=== PATIENT | female | born 1975 | race Hispanic/Latino ===

== ENCOUNTER 2020-06-23 12:17 | Emergency (ER) | payer OTHER ==
[2020-06-23] MEDS ORDERED: IBUPROFEN 400 MG TAB ONE (13:32)
[2020-06-23] MEDS ORDERED: IBUPROFEN 200 MG TAB PO ONE (13:32)
[2020-06-23] MEDS ORDERED: LIDOCAINE 4% PATCH ONE (13:32)
--- NOTE | 2020-06-23 14:21 | RAD REPORT ---
EXAM DESCRIPTION: Shoulder Right 2 View - 06/23/2020 1:52 pm CLINICAL HISTORY: PAIN COMPARISON: No comparisons TECHNIQUE: Internal and external rotation views of the right shoulder were obtained. FINDINGS: There is no fracture or dislocation. AC joint is normal in appearance. No acute or suspic ious findings. IMPRESSION: Negative two-view right shoulder examination.
--- NOTE | 2020-06-23 14:26 | ER ---
Nurse's Notes [facility] Name: Torri Victoria Age: 44 yrs Sex: Female : 1975 Arrival Date: 06/23/2020 Time: 12:19 Bed 25 Private MD: Diagnosis: Strain of muscle(s) and tendon(s) of the rotator cuff of right shoulder Presentation: 06/23 12:54 Chief complaint: Patient states: my RIGHT arm started hurting 2 weeks ago, and i also tw2 felt dizzy then when it hurt, i felt dizzy because of the pain. Coronavirus screen: At this time, the client does not indicate any symptoms associated with coronavirus-19. Ebola Screen: Patient denies travel to an Ebola-affected area in the 21 days before illness onset. Initial Sepsis Screen: Does the patient meet any 2 criteria? HR > 90 bpm. No. Patient's initial sepsis screen is negative. Does the patient have a suspected source of infection? No. Patient's initial sepsis screen is negative. Risk Assessment: Do you want to hurt yourself or someone else? Patient reports no desire to harm self or others. Onset of symptoms was June 23, 2020. 12:54 Method Of Arrival: Ambulatory tw2 12:54 Acuity: RUDY 4 tw2 Triage Assessment: 12:57 General: Appears in no apparent distress. Behavior is calm, cooperative, appropriate tw2 for age. Pain: Complains of pain in right arm. Neuro: Reports dizziness, with the RIGHT arm pain. 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 - Social history:: Smoking status: Patient denies any tobacco usage or history of. Screenin:12 Abuse screen: Denies threats or abuse. Denies injuries from another. Nutritional zb screening: No deficits noted. Tuberculosis screening: No symptoms or risk factors identified. Fall Risk None identified. Assessment: 13:09 General: Appears in no apparent distress. uncomfortable, Behavior is calm, cooperative, zb appropriate for age. Pain: Complains of pain in right shoulder Pain does not radiate. Pain currently is 10 out of 10 on a pain scale. Quality of pain is described as sharp, tender, Pain began 2 weeks ago Is continuous, Aggravated by increased activity, repositioning. Neuro: Level of Consciousness is awake, alert, obeys commands, Oriented to person, place, time, situation. Cardiovascular: Capillary refill < 3 seconds in bilateral fingers Patient's skin is warm and dry. Respiratory: Airway is patent Respiratory effort is even, unlabored, Respiratory pattern is regular, symmetrical. GI: No signs and/or symptoms were reported involving the gastrointestinal system. : No signs and/or symptoms were reported regarding the genitourinary system. EENT: No signs and/or symptoms were reported regarding the EENT system. Derm: Skin is intact, is healthy with good turgor, Skin is dry, Skin is normal, Skin temperature is warm. Musculoskeletal: Circulation, motion, and sensation intact. Capillary refill < 3 seconds, in bilateral fingers. Range of motion: limited in right arm. 14:09 Reassessment: Patient appears in no apparent distress at this time. Patient and/or zb family updated on plan of care and expected duration. Pain level reassessed. Patient is alert, oriented x 3, equal unlabored respirations, skin warm/dry/pink. pt states that her pain has decreased. pt continues to wear the sling. Patient states feeling better. Patient states symptoms have improved. Vital Signs: 12:54 BP 142 / 88; Pulse 99; Resp 17; Temp 98.2(TE); Pulse Ox 98% on R/A; Weight 61.23 kg tw2 (R); Pain 10/10; 14:09 BP 113 / 94; Pulse 98; Resp 16; Pulse Ox 96% on R/A; zb ED Course: 12:19 Patient arrived in ED. ag3 12:56 Triage completed. tw2 12:57 Arm band placed on. tw2 13:01 Manjit Thorne NP is PHCP. pm1 13:02 Bimal Gould MD is Attending Physician. pm1 13:02 Andie Jennings RN is Primary Nurse. zb 13:12 Patient has correct armband on for positive identification. Allergy band placed. Bed in zb low position. Call light in reach. Side rails up X 1. Adult w/ patient. Pulse ox on. NIBP on. Door closed. Noise minimized. 13:53 Shoulder Right (2 View) XRAY In Process Unspecified. EDMS 14:25 Logan De Jesus MD is Referral Physician. pm1 14:32 No provider procedures requiring assistance completed. Patient did not have IV access zb during this emergency room visit. Administered Medications: 13:29 Drug: Ibuprofen 600 mg Route: PO; zb 14:19 Follow up: Response: No adverse reaction; Pain is decreased zb 13:37 Drug: Lidoderm 5 % (700 mg/patch) 1 patches Route: Topical; Site: affected area; zb 14:19 Follow up: Response: No adverse reaction; Pain is decreased zb Outcome: 14:26 Discharge ordered by . pm1 14:32 Discharged to home ambulatory, with family. zb 14:32 Condition: stable 14:32 Discharge instructions given to patient, family, Instructed on discharge instructions, follow up and referral plans. medication usage, Demonstrated understanding of instructions, follow-up care, medications, Prescriptions given X 1. 14:33 Patient left the ED. zb Signatures: Dispatcher [employer] EDMS Manjit Thorne, HEALTH PHYSICIST HEALTH PHYSICIST pm1 Ericka Chan RN RN tw2 Mya Jarvis ag3 Andie Jennings RN RN zb
--- NOTE | 2020-06-23 14:26 | EDPHYS ---
Physician Documentation [facility] Name: Torri Victoria Age: 44 yrs Sex: Female : 1975 Arrival Date: 06/23/2020 Time: 12:19 Bed 25 Private MD: ROBIN Physician Bimal Gould HPI: 06/23 14:02 This 44 yrs old Female presents to ER via Ambulatory with complaints of Right pm1 shoulder pain. 14:02 The patient or guardian complains of pain. The complaints affect the anterior aspect of pm1 right shoulder. Context: The problem was sustained at home, resulted from possibly lifting up heavy item. Onset: The symptoms/episode began/occurred 2 week(s) ago. Treatment prior to arrival includes: over the counter medications, Tylenol. Modifying factors: The symptoms are alleviated by remaining still, the symptoms are aggravated by movement. Associated signs and symptoms: Pertinent positives: pain, Pertinent negatives: fever, numbness, tingling. Severity of symptoms: in the emergency department the symptoms are unchanged. The patient has not experienced similar symptoms in the past. The patient has not recently seen a physician. 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 - Social history:: Smoking status: Patient denies any tobacco usage or history of. Vital Signs: 12:54 BP 142 / 88; Pulse 99; Resp 17; Temp 98.2(TE); Pulse Ox 98% on R/A; Weight 61.23 kg tw2 (R); Pain 10/10; 14:09 BP 113 / 94; Pulse 98; Resp 16; Pulse Ox 96% on R/A; zb MDM: 13:02 Patient medically screened. pm1 13:58 Data reviewed: vital signs. pm1 14:25 Counseling: I had a detailed discussion with the patient and/or guardian regarding: the pm1 historical points, exam findings, and any diagnostic results supporting the discharge/admit diagnosis, radiology results, the need for outpatient follow up, a orthopedic surgeon, to return to the emergency department if symptoms worsen or persist or if there are any questions or concerns that arise at home. 06/23 13:09 Order name: Shoulder Right (2 View) XRAY; Complete Time: 14:24 pm1 06/23 13:09 Order name: Sling; Complete Time: 13:29 pm1 Administered Medications: 13:29 Drug: Ibuprofen 600 mg Route: PO; zb 14:19 Follow up: Response: No adverse reaction; Pain is decreased zb 13:37 Drug: Lidoderm 5 % (700 mg/patch) 1 patches Route: Topical; Site: affected area; zb 14:19 Follow up: Response: No adverse reaction; Pain is decreased zb Disposition: 06/23/20 14:26 Discharged to Home. Impression: Strain of muscle(s) and tendon(s) of the rotator cuff of right shoulder. - Condition is Stable. - Discharge Instructions: Shoulder Pain, How to Use a Sling. - Prescriptions for Diclofenac Sodium 75 mg Oral Tablet, Delayed Release (E.C.) - take 1 tablet by ORAL route 2 times per day As needed; 30 tablet. - Medication Reconciliation Form, Thank You Letter, Antibiotic Education, Prescription Opioid Use form. - Follow up: Emergency Department; When: As needed; Reason: Worsening of condition. Follow up: Logan De Jesus MD; When: 2 - 3 days; Reason: Recheck today's complaints, Continuance of care, Re-evaluation by your physician. - Problem is new. - Symptoms have improved. Signatures: Dispatcher [employer] EDMS Manjit Thorne NP AUTOMOBILE SERVICE WRITER pm1 Ericka Chan RN RN tw2 Andie Jennings RN RN zb Corrections: (The following items were deleted from the chart) 14:33 14:26 06/23/2020 14:26 Discharged to Home. Impression: Strain of muscle(s) and zb tendon(s) of the rotator cuff of right shoulder. Condition is Stable. Forms are Medication Reconciliation Form, Thank You Letter, Antibiotic Education, Prescription Opioid Use. Follow up: Emergency Department; When: As needed; Reason: Worsening of condition. Follow up: Dr. Logan De Jesus; When: 2 - 3 days; Reason: Recheck today's complaints, Continuance of care, Re-evaluation by your physician. Problem is new. Symptoms have improved. pm1
[2020-06-23 15:02] VITALS: TEMP 98.2
[2020-06-23 15:03] VITALS: BP 113/94; O2SAT 96
== END 2020-06-23 14:33 | disposition home or self-care (01) ==
LOC: ER 12:17
DX: S46.011A Strain of muscle(s) and tendon(s) of the rotator cuff of right shoulder, initial encounter (principal)
CPT/HCPCS: 99284

== ENCOUNTER 2020-08-09 10:46 | Emergency (ER) | payer OTHER ==
[2020-08-09 12:48] LABS: SARS-COV-2 RT PCR POSITIVE (NEGATIVE)
--- NOTE | 2020-08-09 13:05 | EDPHYS ---
Physician Documentation [facility] Name: Torri Victoria Age: 44 yrs Sex: Female : 1975 Arrival Date: 08/09/2020 Time: 10:48 Bed DIS1 Private MD: ED Physician Luis Loo HPI: 08/09 12:35 This 44 yrs old Female presents to ER via Ambulatory with complaints of r/o pm1 covid. 22:01 The patient or guardian reports cough, headache, sneezing. Onset: The symptoms/episode pm1 began/occurred yesterday. Severity of symptoms: in the emergency department the symptoms are unchanged. Associated signs and symptoms: Pertinent negatives: chest pain, diarrhea, fever, nausea, sore throat, vomiting, shortness of breath. The patient has not recently seen a physician. daughter was covid positive. 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 - Social history:: Smoking status: Patient denies any tobacco usage or history of. ROS: 22:01 Constitutional: Negative for fever, chills, and weight loss, ENT: Negative for injury, pm1 pain, and discharge, Cardiovascular: Negative for chest pain, palpitations, and edema. 22:01 Abdomen/GI: Negative for abdominal pain, nausea, vomiting, diarrhea, and constipation, Back: Negative for injury and pain, MS/Extremity: Negative for injury and deformity, Skin: Negative for injury, rash, and discoloration. 22:01 Respiratory: Positive for cough, Negative for shortness of breath. 22:01 Neuro: Positive for headache. Exam: 22:01 Constitutional: This is a well developed, well nourished patient who is awake, alert, pm1 and in no acute distress. Head/Face: Normocephalic, atraumatic. 22:01 Skin: Warm, dry with normal turgor. Normal color with no rashes, no lesions, and no evidence of cellulitis. MS/ Extremity: Pulses equal, no cyanosis. Neurovascular intact. Full, normal range of motion. 22:01 Cardiovascular: Exam negative for acute changes, Rate: normal, Rhythm: regular, Pulses: no pulse deficits are appreciated. 22:01 Respiratory: Exam negative for acute changes, respiratory distress, shortness of breath. 22:01 Neuro: Exam negative for acute changes, Orientation: is normal, Mentation: is normal, Motor: moves all fours, Gait: is steady. Vital Signs: 11:13 BP 131 / 77; Pulse 105; Resp 16 S; Temp 98.6(TE); Pulse Ox 98% on R/A; Weight 72.57 kg ca1 (R); Height 5 ft. 2 in. (157.48 cm) (R); 11:13 Body Mass Index 29.26 (72.57 kg, 157.48 cm) ca1 MDM: 12:03 Patient medically screened. pm1 13:04 Data reviewed: vital signs. Data interpreted: Pulse oximetry: on room air is 98 %. pm1 Interpretation: normal. Counseling: I had a detailed discussion with the patient and/or guardian regarding: the historical points, exam findings, and any diagnostic results supporting the discharge/admit diagnosis, lab results, the need for outpatient follow up, to return to the emergency department if symptoms worsen or persist or if there are any questions or concerns that arise at home. 08/09 12:03 Order name: Strep; Complete Time: 12:52 pm1 08/09 12:35 Order name: Throat Culture EDNV 08/09 12:49 Order name: COVID-19/FLU A+B; Complete Time: 12:52 EDMS Administered Medications: No medications were administered Disposition: 18:26 Co-signature as Attending Physician, Luis Loo MD. rn Disposition: 08/09/20 13:04 Discharged to Home. Impression: Coronavirus infection, unspecified. - Condition is Stable. - Discharge Instructions: COVID-19. - Medication Reconciliation Form, Thank You Letter, Antibiotic Education, Prescription Opioid Use form. - Follow up: Emergency Department; When: As needed; Reason: Worsening of condition. Follow up: Private Physician; When: 2 - 3 days; Reason: Recheck today's complaints, Continuance of care, Re-evaluation by your physician. - Problem is new. - Symptoms have improved. Signatures: Dispatcher [employer] EDNV Tatyana Chávez RN RN iw Nieto, Roman, MD MD rn Marinas, Patrick, ENGINE BOSS ENGINE BOSS pm1 Jacklyn Barrera RN RN ca1 Corrections: (The following items were deleted from the chart) 11:48 11:23 CORONAVIRUS+ ordered. EDNV EDMS 13:17 13:04 08/09/2020 13:04 Discharged to Home. Impression: Coronavirus infection, iw unspecified. Condition is Stable. Forms are Medication Reconciliation Form, Thank You Letter, Antibiotic Education, Prescription Opioid Use. Follow up: Emergency Department; When: As needed; Reason: Worsening of condition. Follow up: Private Physician; When: 2 - 3 days; Reason: Recheck today's complaints, Continuance of care, Re-evaluation by your physician. Problem is new. Symptoms have improved. pm1
--- NOTE | 2020-08-09 13:05 | ER ---
Nurse's Notes [facility] Name: Torri Victoria Age: 44 yrs Sex: Female : 1975 Arrival Date: 08/09/2020 Time: 10:48 Bed DIS1 Private MD: Diagnosis: Coronavirus infection, unspecified Presentation: 08/09 11:13 Chief complaint: Patient states: S/S started 08/08/2020. Headache, cough, sneezing. ca1 Coronavirus screen: Client denies travel out of the [place] in the last 14 days. cough unrelated to allergies, headache, runny nose, Client presents with at least one sign or symptom that may indicate coronavirus-19. Standard/surgical mask placed on the client. Provider contacted for isolation considerations. exposed to sister with Covid+. Ebola Screen: Patient negative for fever greater than or equal to 101.5 degrees Fahrenheit, and additional compatible Ebola Virus Disease symptoms Patient denies exposure to infectious person. Patient denies travel to an Ebola-affected area in the 21 days before illness onset. No symptoms or risks identified at this time. Initial Sepsis Screen: Does the patient meet any 2 criteria? No. Patient's initial sepsis screen is negative. Does the patient have a suspected source of infection? No. Patient's initial sepsis screen is negative. Risk Assessment: Do you want to hurt yourself or someone else? Patient reports no desire to harm self or others. Onset of symptoms was August 09, 2020. 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 - Social history:: Smoking status: Patient denies any tobacco usage or history of. Vital Signs: 11:13 BP 131 / 77; Pulse 105; Resp 16 S; Temp 98.6(TE); Pulse Ox 98% on R/A; Weight 72.57 kg ca1 (R); Height 5 ft. 2 in. (157.48 cm) (R); 11:13 Body Mass Index 29.26 (72.57 kg, 157.48 cm) ca1 ED Course: 10:48 Patient arrived in ED. as 11:15 Triage completed. ca1 11:16 Arm band placed on right wrist. ca1 11:31 Flu Sent. ca1 12:00 Manjit Thorne NP is PHCP. pm1 12:00 Luis Loo MD is Attending Physician. pm1 12:14 Tatyana Chávez, RN is Primary Nurse. iw Administered Medications: No medications were administered Outcome: 13:04 Discharge ordered by . pm1 13:17 Patient left the ED. iw Signatures: Marylin Cr as Tatyana Cháevz, RN RN iw Manjit Thorne NP PLATE FORMER pm1 Jacklyn Barrera RN RN ca1 Corrections: (The following items were deleted from the chart) 11:48 11:31 CORONAVIRUS+ drawn and sent. ca1 EDMS
[2020-08-09 13:26] VITALS: BP 131/77; TEMP 98.6; O2SAT 98
== END 2020-08-09 13:17 | disposition home or self-care (01) ==
LOC: ER 10:46
DX: U07.1 COVID-19 (principal)
CPT/HCPCS: 87070; 87081; 0240U; 99282

== ENCOUNTER → 2023-09-01 | Emergency (ER) | payer OTHER ==
[~2023-09-01] MED LIST: NA CHLORIDE 0.9% 1,000 ML ONE; NITROFURAN MACRO 100 MG CAP PO ONE
[2023-09-01 15:35] LABS: Absolute Eosinophils 0.4 K/uL (0-0.5); Absolute Monocytes 0.5 K/uL (0.1-1.3); Absolute Neutrophil 5.2 K/uL (1.8-8.0); Basophils % 0.5 % (0-1.3); Eosinophils % 4.1 % (0-4.4); Hemoglobin 13.5 g/dL (12.0-15.0); MCH 28.3 pg (27.0-35.0); MCV 85.7 fL (80-100); MPV 7.6 fL (7.6-11.3); Neutrophils % 56.4 % (41.7-73.7); Nucleated Red Blood Cells % 0.1 % (0-0); Platelets 251 thou/uL (152-406); RBC Red Blood Cell Count 4.78 M/uL (3.86-4.86); Red Cell Distribution Width 13.3 % (12.1-15.2)
[2023-09-01 15:58] LABS: Albumin 3.8 g/dL (3.4-5.0); Albumin/Globulin Ratio 0.9 (1.1-1.8); Anion Gap 8.8 mEq/L (5.0-15.0); Bilirubin Total 0.2 mg/dL (0.2-1.0); Globulin 4.2 g/dL (2.3-3.5); Potassium 3.8 mEq/L (3.5-5.1); Specific Gravity 1.023 (1.005-1.030); Sqamous Epithelial <5 /HPF (None Seen); Urine Bacteria 20-50 /HPF (<20); Urine Bilirubin NEGATIVE (Negative); Urine Blood Negative (Negative); Urine Clarity Turbid (Clear); Urine Color Light-Yellow (Yellow); Urine Culture Reflex Order REFLEXED; Urine Glucose NEGATIVE (Negative); Urine Ketones NEGATIVE (Negative); Urine Microscopic Reflex YN ORDER UMIC; Urine Mucus Slight /HPF (None Seen); Urine Nitrite 2+ (Negative); Urine Protein NEGATIVE (Negative); Urine RBC <5 /HPF (None Seen); Urine Urobilinogen Normal (Normal); Urine pH 5.5 (5.0-7.0)
[2023-09-01 15:59] LABS: Specific Gravity 1.023 (1.005-1.030)
--- NOTE | 2023-09-01 16:51 | RAD REPORT ---
EXAM DESCRIPTION: CT - Abdomen Pelvis W Contrast - 09/01/2023 4:22 pm CLINICAL HISTORY: ABD PAIN COMPARISON: No comparisons TECHNIQUE: Thin cut axial CT imaging of the abdomen and pelvis was performed following intravenous a dministration of 95 mL Isovue 300. Multiplanar reformats were generated and reviewed. All CT scans are performed using dose optimization technique as appropriate and may include automated exposure control or mA/KV adjustment according to patient size. FINDINGS: No suspicious findings in the lung bases. The liver, spleen, adrenal glands, and pancreas show no suspicious findings. Gallbladder and biliary tree are also without suspicious finding. Symmetric renal function is seen with no hydronephrosis or suspicious renal mass. 1.3 cm left mid to lower pole fluid density cyst. No dilated bowel loops or bowel wall thickening. No free air, free fluid or inflammatory stranding. N o hernia, mass or bulky lymphadenopathy. Small adnexal cysts, largest measuring 2.2 cm on the left li jovan physiologic. The urinary bladder is without significant finding. No suspicious bony findings. Small sclerotic lesion within the left iliac wing, likely benign, may re present a small enchondroma or bone island. IMPRESSION: No acute intra-abdominal process.
--- NOTE | 2023-09-01 17:21 | ER ---
Nurse's Notes [facility] Name: Torri Victoria Age: 47 yrs Sex: Female : 1975 Arrival Date: 09/01/2023 Time: 15:04 Bed 4 Private MD: Diagnosis: UTI/ Urinary tract infection, site not specified Presentation: 08/31 15:15 Chief complaint: Lower abdominal pain and diarrhea since last night. Coronavirus hb screen: At this time, the client does not indicate any symptoms associated with coronavirus-19. Ebola Screen: No symptoms or risks identified at this time. Initial Sepsis Screen: Does the patient meet any 2 criteria? No. Patient's initial sepsis screen is negative. Does the patient have a suspected source of infection? No. Patient's initial sepsis screen is negative. Risk Assessment: Do you want to hurt yourself or someone else? Patient reports no desire to harm self or others. Onset of symptoms was August 31, 2023. 15:15 Method Of Arrival: Ambulatory hb 15:15 Acuity: RUDY 3 hb Triage Assessment: 15:16 General: Appears in no apparent distress. Behavior is calm, cooperative. Pain: Pain hb currently is 5 out of 10 on a pain scale. Neuro: Level of Consciousness is awake, alert, obeys commands, Oriented to person, place, time, situation. Cardiovascular: Patient's skin is warm and dry. Respiratory: Respiratory effort is even, unlabored, Respiratory pattern is regular, symmetrical. GI: Reports lower abdominal pain, diarrhea. Historical: - Allergies: 15:16 No Known Allergies; hb - Home Meds: 15:16 None [Active]; hb - Immunization history:: Adult Immunizations up to date. - Social history:: Smoking status: Patient denies any tobacco usage or history of. Screenin:[address] [facility] ED Fall Risk Assessment (Adult) History of falling in the last 3 months, hb including since admission No falls in past 3 months (0 pts) Confusion or Disorientation No (0 pts) Intoxicated or Sedated No (0 pts) Impaired Gait No (0 pts) Mobility Assist Device Used No (0 pt) Altered Elimination No (0 pt) Score/Fall Risk Level 0 - 2 = Low Risk Oriented to surroundings, Maintained a safe environment, Educated pt \T\ family on fall prevention, incl call for assistance when getting out of bed. Abuse screen: Denies threats or abuse. Denies injuries from another. Nutritional screening: No deficits noted. Tuberculosis screening: No symptoms or risk factors identified. Assessment: 15:29 General: Appears in no apparent distress. Behavior is calm, cooperative. Pain: kd3 Complains of pain in abdomen. Neuro: Level of Consciousness is awake, alert, obeys commands, Oriented to person, place, time, situation. Cardiovascular: Patient's skin is warm and dry. Respiratory: Airway is patent Trachea midline Respiratory effort is even, unlabored, Respiratory pattern is regular, symmetrical. GI: Bowel sounds present X 4 quads. Abd is soft X 4 quads. 17:00 Reassessment: Patient appears in no apparent distress at this time. Patient and/or nj1 family updated on plan of care and expected duration. Pain level reassessed. Patient is alert, oriented x 3, equal unlabored respirations, skin warm/dry/pink. Patient denies pain at this time. Vital Signs: 15:15 BP 151 / 85; Pulse 119; Resp 16; Temp 98.6(O); Pulse Ox 100% on R/A; Pain 5/10; hb 16:00 BP 129 / 77; Pulse 91; Resp 16; Pulse Ox 100% ; nj1 17:21 BP 114 / 64; Pulse 106; Resp 17; Pulse Ox 100% on R/A; kd3 15:15 Pain Scale: Adult hb ED Course: 15:09 Patient arrived in ED. im 15:10 Angélica Atkinson FNP-C [facility]. kb 15:10 Dave Dalton MD is Attending Physician. kb 15:14 Susan Leon, BARBARA is Primary Nurse. aa5 15:16 Triage completed. hb 15:16 Arm band placed on. hb 15:17 Client placed on continuous cardiac and pulse oximetry monitoring. NIBP monitoring hb applied. Pulse ox on. NIBP on. 15:18 Patient has correct armband on for positive identification. Bed in low position. Call hb light in reach. Side rails up X 1. 15:29 Inserted saline lock: 20 gauge in right antecubital area, using aseptic technique. kd3 Blood collected. 15:30 No provider procedures requiring assistance completed. Initial lab(s) drawn, by nj, kd3 sent to lab. Urine collected: clean catch specimen, clear. 16:22 CT Abd/Pelvis - IV Contrast Only In Process Unspecified. EDMS 17:55 Provided Education on: discharge instructions. nj1 17:55 IV discontinued, intact, bleeding controlled. nj1 Administered Medications: 15:25 Drug: NS 0.9% IV 1000 ml IV at 1 bolus Per protocol; 1000 mL bolus Route: IV; Rate: 1 kd3 bolus; Site: right antecubital; 17:00 Follow up: Response: No adverse reaction; IV Status: Completed infusion; IV Intake: nj1 1000ml 17:30 Drug: Macrobid PO 100 mg PO once; administer with food Route: PO; nj1 17:55 Follow up: Response: No adverse reaction nj1 Medication: 17:21 VIS not applicable for this client. kd3 Intake: 17:00 IV: 1000ml; Total: 1000ml. nj1 Outcome: 17:21 Discharge ordered by . kb 17:54 Patient left the ED. nj1 17:54 Discharged to home ambulatory, with family, nj1 17:54 Condition: stable 17:54 Discharge instructions given to patient, family, Instructed on discharge instructions, follow up and referral plans. medication usage, Demonstrated understanding of instructions, follow-up care, medications, Prescriptions given X 1, Signatures: Dispatcher [employer] EDVA Angélica Atkinson, CONTRACTOR BROOMCORN THRESHING-C CONTRACTOR BROOMCORN THRESHING-CkSusan Torrez, RN RN aa5 Latisha Khan, RN RN Mirlande Richard RN RN kd3 Kasie Sosa RN RN nj1 Carine Triplett
--- NOTE | 2023-09-01 17:22 | EDPHYS ---
Physician Documentation [facility] Name: Torri Victoria Age: 47 yrs Sex: Female : 1975 Arrival Date: 09/01/2023 Time: 15:04 Bed 4 Private MD: ED Physician Dave Dalton HPI: 08/31 15:31 This 47 yrs old Female presents to ER via Ambulatory with complaints of kb Abdominal Pain, Diarrhea. 15:31 Patient is a 47-year-old female who presents for lower abdominal pain and diarrhea that kb started last night. Denies nausea, vomiting, fever.. Historical: - Allergies: 15:16 No Known Allergies; hb - Home Meds: 15:16 None [Active]; hb - Immunization history:: Adult Immunizations up to date. - Social history:: Smoking status: Patient denies any tobacco usage or history of. ROS: 15:31 Constitutional: As per HPI kb 15:31 Abdomen/GI: Positive for abdominal pain, diarrhea, Negative for nausea and vomiting, 15:31 All other systems are negative, Exam: 15:31 Constitutional: This is a well developed, well nourished patient who is awake, alert, kb and in no acute distress. Head/Face: Normocephalic, atraumatic. ENT: Moist Mucous membranes Cardiovascular: Regular rate Respiratory: Respirations even and unlabored. No increased work of breathing. Talking in full sentences Abdomen/GI: Soft, non-tender. No distention Skin: Warm, dry with normal turgor. Normal color. MS/ Extremity: Pulses equal, no cyanosis. Neurovascular intact. Full, normal range of motion. Neuro: Awake and alert, GCS 15, oriented to person, place, time, and situation. Moves all extremities. Normal gait. Vital Signs: 15:15 BP 151 / 85; Pulse 119; Resp 16; Temp 98.6(O); Pulse Ox 100% on R/A; Pain 5/10; hb 16:00 BP 129 / 77; Pulse 91; Resp 16; Pulse Ox 100% ; nj1 17:21 BP 114 / 64; Pulse 106; Resp 17; Pulse Ox 100% on R/A; kd3 15:15 Pain Scale: Adult hb MDM: 15:10 Patient medically screened. kb 15:31 Data reviewed: vital signs, nurses notes. kb 17:20 Differential diagnosis: appendicitis, non-specific abd pain, urinary tract infection. kb Historians other than the Patient: Parent: mother. Counseling: I had a detailed discussion with the patient and/or guardian regarding the historical points, exam findings, and any diagnostic results supporting the discharge/admit diagnosis, lab results, radiology results, the need for outpatient follow up, a family practitioner, to return to the emergency department if symptoms worsen or persist or if there are any questions or concerns that arise at home. 08/31 15:15 Order name: CBC with Diff; Complete Time: 15:41 kb 08/31 15:15 Order name: CMP; Complete Time: 16:00 kb 08/31 15:15 Order name: Lipase; Complete Time: 16:00 kb 08/31 15:15 Order name: Test, Urine; Complete Time: 16:00 kb 08/31 15:15 Order name: Urinalysis w/ reflexes; Complete Time: 16:00 kb 08/31 16:01 Order name: Urine Culture EDMS 08/31 15:15 Order name: CT Abd/Pelvis - IV Contrast Only; Complete Time: 17:01 kb 08/31 15:15 Order name: IV Saline Lock; Complete Time: 15:25 kb 08/31 15:15 Order name: Labs collected and sent; Complete Time: 15:25 kb Administered Medications: 15:25 Drug: NS 0.9% IV 1000 ml IV at 1 bolus Per protocol; 1000 mL bolus Route: IV; Rate: 1 kd3 bolus; Site: right antecubital; 17:00 Follow up: Response: No adverse reaction; IV Status: Completed infusion; IV Intake: nj1 1000ml 17:30 Drug: Macrobid PO 100 mg PO once; administer with food Route: PO; nj1 17:55 Follow up: Response: No adverse reaction nj1 Disposition Summary: 09/01/23 17:21 Discharge Ordered Notes: Location: Home kb Condition: Stable kb Diagnosis - UTI/ Urinary tract infection, site not specified kb Followup: kb - With: Emergency Department - When: As needed - Reason: Worsening of condition Followup: kb - With: Private Physician - When: 2 - 3 days - Reason: Recheck today's complaints, Continuance of care, Re-evaluation by your physician Discharge Instructions: - Discharge Summary Sheet kb - Urinary Tract Infection, Adult, [id number] kb Forms: - Medication Reconciliation Form kb - Thank You Letter kb - Antibiotic Education kb - Prescription Opioid Use kb - Patient Portal Instructions kb - Leadership Thank You Letter kb Prescriptions: - Macrobid 100 mg Oral Capsule - take 1 capsule ORAL route every 12 hours for 10 days; 20 capsule; Refills: 0, kb Product Selection Permitted Addendum: 09/04/2023 09:41 I was immediately available for consultation during this patient's visit. I did not e c2 personally see the patient or discuss the patient with the CHRISSIE. . Signatures: Dispatcher [employer] EDAngélica Bush, ROUGHING MILL OPERATOR-C ROUGHING MILL OPERATOR-Ckb Latisha Khan RN RN Mirlande Richard RN RN kd3 Kasie Sosa RN RN nj1 Dave Dalton MD MD ec2
[2023-09-01 18:59] VITALS: BP 114/64; TEMP 98.6; O2SAT 100
== END ==
LOC: ER 15:04
DX: N39.0 Urinary tract infection, site not specified (principal); R19.7 Diarrhea, unspecified
CPT/HCPCS: 96361; 87088; 85025; 81001; 87086; 36415; 81025; 87077; 87186; 83690; 80053; 74177; 96360; 99284; Q9967; J7030

== ENCOUNTER 2024-05-28 15:29 | Emergency (ER) | payer OTHER ==
--- NOTE | 2024-05-28 16:59 | RAD REPORT ---
EXAMINATION: ONE VIEW CHEST XR CLINICAL INDICATION: CHEST PAIN TECHNIQUE: Frontal chest projection is submitted. Examination is limited by patient positioning and t echnique. COMPARISON: No prior exam. FINDINGS: The lungs are well inflated and clear. The heart is upper limit of normal in size. No displaced fract ures identified. IMPRESSION: No acute intrathoracic abnormalities.
[2024-05-28] MEDS ORDERED: ONDANSETRON 4 MG/2 ML VIAL ONE (18:30)
[2024-05-28] MEDS ORDERED: MORPHINE 4 MG/ML SYR ONE (18:31)
[2024-05-28] MEDS ORDERED: NA CHLORIDE 0.9% 1,000 ML ONE (18:31)
[2024-05-28 19:11] LABS: Absolute Eosinophils 0.2 K/uL (0-0.5); Absolute Lymphocytes (CBC) 3.1 K/uL (0.7-4.9); Absolute Monocytes 0.5 K/uL (0.1-1.3); Absolute Neutrophil 5.4 K/uL (1.8-8.0); Basophils % 0.4 % (0-1.3); Eosinophils % 2.3 % (0-4.4); Hematocrit 39.4 % (36.0-45.0); Hemoglobin 12.6 g/dL (12.0-15.0); Lymphocytes % 33.8 % (15.3-44.8); MCH 27.5 pg (27.0-35.0); MCV 85.9 fL (80-100); MPV 8.1 fL (7.6-11.3); Monocytes % 5.6 % (3.3-12.3); Neutrophils % 57.9 % (41.7-73.7); Nucleated Red Blood Cells % 0.1 % (0-0); Platelets 225 thou/uL (152-406); RBC Red Blood Cell Count 4.59 M/uL (3.86-4.86); Red Cell Distribution Width 13.3 % (12.1-15.2)
[2024-05-28 19:21] LABS: SARS-CoV-2 Antigen CONTROL BLUE LINE VIS/BG OK; SARS-CoV-2 Antigen Rapid Res Negative (Negative)
[2024-05-28 19:37] LABS: ALT/SGPT 25 U/L (13-56); AST/SGOT 19 U/L (15-37); Albumin 3.4 g/dL (3.4-5.0); Albumin/Globulin Ratio 0.9 (1.1-1.8); Alkaline Phosphatase 92 U/L (45-117); Anion Gap 7.7 mEq/L (5.0-15.0); BUN Blood Urea Nitrogen 20 mg/dL (7-18); Bicarbonate 27 mEq/L (21-32); Bilirubin Direct < 0.2 mg/dL (0-0.2); Bilirubin Total 0.2 mg/dL (0.2-1.0); Globulin 3.8 g/dL (2.3-3.5); Glomerular Filtration Rate 108 ml/min (=/>90); Glucose Level 102 mg/dL (74-106); NT PRO-BNP 86 pg/mL (<125); Potassium 3.7 mEq/L (3.5-5.1); Protein, Total 7.2 g/dL (6.4-8.2); Sodium Level 140 mEq/L (136-145); Troponin High Sensitivity 4.4 pg/mL (<58.9)
[2024-05-28 19:47] LABS: D-Dimer 0.235 FEUug/mL (0-0.500); PT Prothrombin Time 12.7 SECONDS (9.4-12.5); Protime INR 1.14
--- NOTE | 2024-05-28 19:58 | ER ---
Nurse's Notes [facility] Name: Torri Victoria Age: 48 yrs Sex: Female : 1975 Arrival Date: 05/28/2024 Time: 15:29 Bed 19 Private MD: Diagnosis: Chest pain, unspecified Presentation: 05/28 15:47 Chief complaint: Patient states: CHEST PAIN TO THE CENTER OF CHEST ONSET THIS MORNING. cm10 PT DESCRIBES THE PAIN HEAVINESS. Coronavirus screen: Client denies travel out of the [place] in the last 14 days. Ebola Screen: Patient denies travel to an Ebola-affected area in the 21 days before illness onset. No symptoms or risks identified at this time. Initial Sepsis Screen: Does the patient meet any 2 criteria? HR > 90 bpm. Does the patient have a suspected source of infection? No. Patient's initial sepsis screen is negative. Risk Assessment: Do you want to hurt yourself or someone else? Patient reports no desire to harm self or others. Onset of symptoms was May 28, 2024. 15:47 Method Of Arrival: Ambulatory cm10 15:47 Acuity: RUDY 2 cm10 Triage Assessment: 15:48 General: Appears in no apparent distress. comfortable, Behavior is calm, cooperative. cm10 Neuro: No deficits noted. Level of Consciousness is awake, alert, obeys commands, Oriented to person, place, time, situation, Appropriate for age. Respiratory: No deficits noted. Airway is patent Respiratory effort is even, unlabored, Respiratory pattern is regular, symmetrical. 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 - Infectious Disease History:: Denies. - Social history:: Smoking status: Patient denies any tobacco usage or history of. Screenin:55 Abuse screen: Denies threats or abuse. Nutritional screening: No deficits noted. ap3 Tuberculosis screening: No symptoms or risk factors identified. 20:14 [facility] ED Fall Risk Assessment (Adult) History of falling in the last 3 months, kj2 including since admission No falls in past 3 months (0 pts) Confusion or Disorientation No (0 pts) Intoxicated or Sedated No (0 pts) Impaired Gait No (0 pts) Mobility Assist Device Used Altered Elimination No (0 pt) Score/Fall Risk Level 0 - 2 = Low Risk Maintained a safe environment, Hourly rounding (assess needs \T\ fall precautionary measures) done. Assessment: 18:54 General: Appears in no apparent distress. Behavior is calm, cooperative, appropriate ap3 for age. 18:54 Pain: Complains of pain in chest. Pain: Pain radiates to left arm Quality of pain is ap3 described as heavy, Pain began gradually. Neuro: Level of Consciousness is awake, alert, obeys commands, Oriented to person, place, time, situation, Appropriate for age. Cardiovascular: Patient's skin is warm and dry. Respiratory: Airway is patent Respiratory effort is even, unlabored, Respiratory pattern is regular, symmetrical. 19:05 Reassessment: Patient appears in no apparent distress at this time. Patient and/or kj2 family updated on plan of care and expected duration. Pain level reassessed. Patient is alert, oriented x 3, equal unlabored respirations, skin warm/dry/pink. 20:17 Reassessment: Patient appears in no apparent distress at this time. Patient and/or kj2 family updated on plan of care and expected duration. Pain level reassessed. Patient is alert, oriented x 3, equal unlabored respirations, skin warm/dry/pink. Vital Signs: 15:47 BP 149 / 90; Pulse 106; Resp 16; Temp 97.4(TE); Pulse Ox 98% on R/A; Weight 72.57 kg; cm10 Pain 0/10; 18:53 BP 123 / 69; Pulse 95; Resp 18; Pulse Ox 96% on R/A; ap3 19:05 BP 115 / 70; Pulse 86; Resp 18; Pulse Ox 98% on R/A; kj2 20:16 BP 118 / 74; Pulse 104; Resp 20; Pulse Ox 100% on R/A; kj2 15:47 Pain Scale: Adult cm10 ED Course: 15:36 Patient arrived in ED. sj2 15:38 Magalie Jennings PA-C is [facility]. sb4 15:38 Michael Stephens MD is Attending Physician. sb4 15:48 Triage completed. cm10 15:48 Arm band placed on right wrist. Patient placed in waiting room. cm10 15:55 EKG completed in triage. Results shown to MD. cm10 15:55 EKG done, by ED staff, reviewed by Magalie Jennings PA-C. cm10 16:54 XRAY Chest (1 view) In Process Unspecified. EDMS 18:36 Priscila Calvert, RN is Primary Nurse. go2 18:52 Inserted saline lock: 22 gauge in right antecubital area, using aseptic technique. ap3 Blood collected. Flushed with 10 mL NS. Patient maintains SpO2 saturation greater than 95% on room air. 18:55 Patient has correct armband on for positive identification. Provided Education on: fall ap3 risk education. Client placed on continuous cardiac and pulse oximetry monitoring. NIBP monitoring applied. traffic monitor specialist on. Pulse ox on. NIBP on. 19:57 Carl Weinstein MD is Referral Physician. sb4 20:16 No provider procedures requiring assistance completed. kj2 20:16 IV discontinued, intact, bleeding controlled, No redness/swelling at site. Pressure kj2 dressing applied. Administered Medications: No medications were administered Medication: 18:55 VIS not applicable for this client. ap3 Outcome: 19:57 Discharge ordered by MD. sb4 20:16 Discharged to home ambulatory, with family, kj2 20:16 Condition: stable 20:16 Discharge instructions given to patient, family, Instructed on discharge instructions, follow up and referral plans. Demonstrated understanding of instructions, follow-up care, 20:30 Patient left the ED. kj2 Signatures: Dispatcher [employer] EDMN Isabell Girard RN RN ap3 Magalie Jennings PA-C PA-C sb4 Kenzie Cr RN RN cm10 Jordan, Krystal, RN RN kj2 Priscila Calvert, BARBARA RN go2 [place] sj2 Corrections: (The following items were deleted from the chart) 18:55 18:54 Pain: Pain does not radiate. ap3 ap3
--- NOTE | 2024-05-28 19:58 | EDPHYS ---
Physician Documentation [facility] Name: Torri Victoria Age: 48 yrs Sex: Female : 1975 Arrival Date: 05/28/2024 Time: 15:29 Bed 19 Private MD: ED Physician Michael Stephens HPI: 05/28 15:49 This 48 yrs old Female presents to ER via Ambulatory with complaints of Chest sb4 Pain > 30 y/o, Arm Pain. 15:49 The patient or guardian reports chest pain that is located primarily in the substernal sb4 area. Onset: this morning. The pain radiates to the right arm. Associated signs and symptoms: Pertinent positives: shortness of breath. The chest pain is described as a heaviness. The patient has not experienced similar symptoms in the past. The patient has not recently seen a physician. chest pain began this morning while sitting, radiates to right arm. denies any prior episodes. 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 - Infectious Disease History:: Denies. - Social history:: Smoking status: Patient denies any tobacco usage or history of. ROS: 15:49 Constitutional: Negative for fever, chills, and weight loss, sb4 15:49 Cardiovascular: Positive for chest pain, 15:49 All other systems are negative, Exam: 15:49 Constitutional: This is a well developed, well nourished patient who is awake, alert, sb4 and in no acute distress. Head/Face: Normocephalic, atraumatic. Eyes: Extra-ocular motions intact. Periorbital areas with no swelling, redness, or edema. ENT: Mucous membranes moist. Cardiovascular: Regular rate and rhythm with a normal S1 and S2. Respiratory: No increased work of breathing, no retractions or nasal flaring. Abdomen/GI: Soft, non-tender, no distension. Skin: Warm, dry with normal turgor. Normal color with no rashes, no lesions, and no evidence of cellulitis. Vital Signs: 15:47 BP 149 / 90; Pulse 106; Resp 16; Temp 97.4(TE); Pulse Ox 98% on R/A; Weight 72.57 kg; cm10 Pain 0/10; 18:53 BP 123 / 69; Pulse 95; Resp 18; Pulse Ox 96% on R/A; ap3 19:05 BP 115 / 70; Pulse 86; Resp 18; Pulse Ox 98% on R/A; kj2 20:16 BP 118 / 74; Pulse 104; Resp 20; Pulse Ox 100% on R/A; kj2 15:47 Pain Scale: Adult cm10 MDM: 15:47 Medical Screening Exam initiated sb4 19:58 Data reviewed: vital signs, nurses notes, lab test result(s), EKG, radiologic studies, sb4 and as a result, I will discharge patient. 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 05/28 15:48 Order name: Basic Metabolic Panel; Complete Time: 19:39 sb4 05/28 15:48 Order name: CBC with Diff; Complete Time: 19:15 sb4 05/28 15:48 Order name: D-Dimer; Complete Time: 19:47 sb4 05/28 15:48 Order name: LFT's; Complete Time: 19:39 sb4 05/28 15:48 Order name: Magnesium; Complete Time: 19:39 sb4 05/28 15:48 Order name: NT PRO-BNP; Complete Time: 19:39 sb4 05/28 15:48 Order name: PT-INR; Complete Time: 19:47 sb4 05/28 15:48 Order name: Troponin HS; Complete Time: 19:39 sb4 05/28 15:48 Order name: SARS RAPID; Complete Time: 19:21 sb4 05/28 15:48 Order name: Flu; Complete Time: 19:31 sb4 05/28 15:48 Order name: XRAY Chest (1 view); Complete Time: 16:59 sb4 05/28 15:48 Order name: Cardiac monitoring; Complete Time: 18:53 sb4 05/28 15:48 Order name: EKG - Nurse/Tech; Complete Time: 15:54 sb4 05/28 15:48 Order name: IV Saline Lock; Complete Time: 18:53 sb4 05/28 15:48 Order name: Labs collected and sent; Complete Time: 18:53 sb4 05/28 15:48 Order name: O2 Per Protocol; Complete Time: 18:53 sb4 05/28 15:48 Order name: O2 Sat Monitoring; Complete Time: 18:53 sb4 EC:56 Rate is 97 beats/min. Rhythm is regular, Normal Sinus Rhythm. Left axis deviation sb4 noted. NE interval is normal at 196 msec. QRS interval is normal at 76 msec. QT interval is normal at 338 msec. No Q waves. Clinical impression: No evidence of ischemia. Interpreted by me. Reviewed by me. Administered Medications: No medications were administered Disposition Summary: 05/28/24 19:57 Discharge Ordered Notes: Location: Home sb4 Problem: new sb4 Symptoms: have improved sb4 Condition: Stable sb4 Diagnosis - Chest pain, unspecified sb4 Followup: sb4 - With: Carl Weinstein MD - When: 2 - 3 days - Reason: Recheck today's complaints, Re-evaluation by your physician Discharge Instructions: - Discharge Summary Sheet sb4 - Nonspecific Chest Pain, Adult, [id number] sb4 Forms: - Patient Portal Instructions sb4 - Leadership Thank You Letter sb4 Signatures: Dispatcher [employer] Magalie Johnson PA-C PA-C sb4 Kenzie Cr, RN RN cm10 Corrections: (The following items were deleted from the chart) 15:48 15:48 BASIC METABOLIC PANEL+C.LAB.BRZ ordered. EDMS EDMS 15:48 15:48 CBC+H.LAB.BRZ ordered. EDMS EDMS 15:48 15:48 D-DIMER+COAG.LAB.BRZ ordered. EDMS EDMS 15:48 15:48 HEPATIC FUNCTION+C.LAB.BRZ ordered. EDMS EDMS 15:48 15:48 MAGNESIUM+C.LAB.BRZ ordered. EDMS EDMS 15:48 15:48 PROBNP+C.LAB.BRZ ordered. EDMS EDMS 15:48 15:48 PROTIME (+INR)+COAG.LAB.BRZ ordered. EDMS EDMS 15:48 15:48 Troponin High Sensitivity+C.LAB.BRZ ordered. EDMS EDMS 15:48 15:48 SARS-COV-2 Antigen Rapid+I.LAB.BRZ ordered. EDMS EDMS 15:48 15:48 Influenza Screen (A \T\ B)+BA.LAB.BRZ ordered. EDMS EDMS 15:48 15:48 Chest Single View+RAD.RAD.BRZ ordered. EDMS EDMS
[2024-05-28 20:50] VITALS: TEMP 97.4
[2024-05-28 20:56] VITALS: BP 118/74; O2SAT 100
--- NOTE | 2024-05-31 15:56 | EKG ---
Test Date: 2024-05-28 Test Time: 15:53:28 Product Management Analyst: JACEK MEASUREMENT RESULTS: Intervals: Rate: 97 WI: 196 QRSD: 76 QT: 338 QTc: 429 [place]: P: 74 WI: 196 QRS: -40 T: 51 INTERPRETIVE STATEMENTS: Normal sinus rhythm Left axis deviation Low voltage QRS Nonspecific ST and T wave abnormality Abnormal ECG No previous ECG available for comparison Electronically Signed On 05-31-24 15:50:59 [employer] by Pablo Penaloza
== END 2024-05-28 20:30 | disposition home or self-care (01) ==
LOC: ER 15:29
DX: R07.9 Chest pain, unspecified (principal); Z11.52 Encounter for screening for COVID-19
CPT/HCPCS: 93005; 85025; 80048; 36415; 83735; 85610; 85379; 80076; 84484; 83880; 87804 ×2; 71045; 99284; 87811; J2405; J7030

== ENCOUNTER 2024-11-05 14:42 | Emergency (ER) | payer OTHER, SELFPAY ==
[2024-11-05 15:56] LABS: Absolute Eosinophils 0.2 K/uL (0-0.5); Absolute Lymphocytes (CBC) 2.6 K/uL (0.7-4.9); Absolute Monocytes 0.6 K/uL (0.1-1.3); Absolute Neutrophil 4.6 K/uL (1.8-8.0); Basophils % 0.5 % (0-1.3); Eosinophils % 2.8 % (0-4.4); Hematocrit 42.1 % (36.0-45.0); Hemoglobin 13.7 g/dL (12.0-15.0); Lymphocytes % 32.7 % (15.3-44.8); MCH 27.6 pg (27.0-35.0); MCHC 32.6 g/dL (32.0-36.0); MCV 84.7 fL (80-100); MPV 7.5 fL (7.6-11.3); Monocytes % 7.1 % (3.3-12.3); Neutrophils % 56.9 % (41.7-73.7); Nucleated Red Blood Cells % 0.1 % (0-0); Platelets 251 thou/uL (152-406); RBC Red Blood Cell Count 4.97 M/uL (3.86-4.86)
[2024-11-05 15:57] LABS: Specific Gravity 1.007 (1.005-1.030); Urine Bilirubin NEGATIVE (Negative); Urine Blood Negative (Negative); Urine Clarity Clear (Clear); Urine Color Colorless (Yellow); Urine Glucose NEGATIVE (Negative); Urine Ketones NEGATIVE (Negative); Urine Microscopic Reflex YN NO UMIC; Urine Nitrite NEGATIVE (Negative); Urine Protein NEGATIVE (Negative); Urine Urobilinogen Normal (Normal); Urine pH 5.5 (5.0-7.0)
[2024-11-05 15:58] LABS: Specific Gravity 1.007 (1.005-1.030)
[2024-11-05 16:15] LABS: Albumin 3.4 g/dL (3.4-5.0); Albumin/Globulin Ratio 0.8 (1.1-1.8); Anion Gap 5.8 mEq/L (5.0-15.0); Bilirubin Total 0.2 mg/dL (0.2-1.0); Globulin 4.2 g/dL (2.3-3.5); Potassium 3.8 mEq/L (3.5-5.1); Protein, Total 7.6 g/dL (6.4-8.2)
[2024-11-05] MEDS ORDERED: ONDANSETRON 4 MG/2 ML VIAL ONE (16:56)
[2024-11-05] MEDS ORDERED: NA CHLORIDE 0.9% 1,000 ML ONE (16:56)
[2024-11-05] MEDS ORDERED: KETOROLAC 30 MG/ML INJ ONE (16:56)
--- NOTE | 2024-11-05 17:21 | RAD REPORT ---
EXAMINATION: CT Stone Protocol CLINICAL INDICATION: Female, 48 years old. FLANK PAIN TECHNIQUE: CT abdomen and pelvis was performed, without IV contrast, as per department protocol. Axia l, sagittal and coronal reconstructions were obtained. One or more of the following dose reduction techniques were used: Automated exposure control, adjustment of the mA and kV according to the patien t size, and iterative reconstruction. Unless otherwise specified, incidental findings do not require dedicated imaging follow-up. COMPARISON: 02/01/2024 FINDINGS: The lack of intravenous contrast limits the sensitivity of this exam for evaluation of solid visceral organs, vascular structures, and retroperitoneum. LOWER CHEST: The visualized lung bases are clear. LIVER: Normal in size and contour. No focal lesion. BILIARY SYSTEM: Gallbladder is decompressed limiting evaluation. No other suspicious abnormalities. SPLEEN: Normal size. No focal lesion. PANCREAS: No mass, ductal dilation, or henok-pancreatic fluid. ADRENALS: Normal; no mass. KIDNEYS AND URETERS: Normal size and contour. No hydronephrosis. URINARY BLADDER: Normal contour. GASTROINTESTINAL TRACT: No evidence of bowel obstruction, significant free fluid, free air or abscess . APPENDIX: Normal appendix. LYMPH NODES: No lymphadenopathy. MUSCULOSKELETAL: No acute or suspicious osseous abnormality. ADDITIONAL FINDINGS: Left adnexal 2.2 cm cyst, stable. IMPRESSION: No acute or concerning abnormalities in the abdomen or pelvis, with evaluation limited by lack of IV contrast.
--- NOTE | 2024-11-05 17:30 | ER ---
Nurse's Notes [facility] Name: Torri Victoria Age: 48 yrs Sex: Female : 1975 Arrival Date: 11/05/2024 Time: 14:42 Bed 5 Private MD: Diagnosis: Low back pain Presentation: 11/05 15:03 Chief complaint: Patient states: MIDDLE BACK PAIN STARTED TODAY WHEN WOKE UP. DENIES db RECENT INJURY. AMBULATORY IN TRIAGE. STATES BODY HURTS SOMETIMES. STATES PAINFUL URINATION STARTED YESTERDAY. COMPLAINS OF NAUSEA TODAY. Coronavirus screen: Client denies travel out of the [place] in the last 14 days. At this time, the client does not indicate any symptoms associated with coronavirus-19. Ebola Screen: Patient negative for fever greater than or equal to 101.5 degrees Fahrenheit, and additional compatible Ebola Virus Disease symptoms Patient denies exposure to infectious person. Patient denies travel to an Ebola-affected area in the 21 days before illness onset. No symptoms or risks identified at this time. Initial Sepsis Screen: Does the patient meet any 2 criteria? No. Patient's initial sepsis screen is negative. Does the patient have a suspected source of infection? No. Patient's initial sepsis screen is negative. Risk Assessment: Do you want to hurt yourself or someone else? Patient reports no desire to harm self or others. Onset of symptoms was November 05, 2024. 15:03 Method Of Arrival: Ambulatory db 15:03 Acuity: RUDY 4 db Triage Assessment: 15:03 General: Appears in no apparent distress. comfortable, Behavior is calm, cooperative. db Pain: Complains of pain in back. Neuro: Level of Consciousness is awake, alert, obeys commands, Oriented to person, place, time, situation. 15:03 Respiratory: Airway is patent Respiratory effort is even, unlabored, Respiratory db pattern is regular, symmetrical. GI: Reports nausea. : Reports burning with urination. Musculoskeletal: Circulation, motion, and sensation intact. Range of motion: intact in all extremities. Historical: - Allergies: 15:03 No Known Allergies; db - PMHx: 15:03 SPECIAL NEEDS; db - Immunization history:: Adult Immunizations unknown. - Infectious Disease History:: Denies. - Social history:: Smoking status: Patient denies any tobacco usage or history of. Screenin:35 [facility] ED Fall Risk Assessment (Adult) History of falling in the last 3 months, ph including since admission No falls in past 3 months (0 pts) Confusion or Disorientation No (0 pts) Intoxicated or Sedated No (0 pts) Impaired Gait No (0 pts) Mobility Assist Device Used No (0 pt) Altered Elimination No (0 pt) Score/Fall Risk Level 0 - 2 = Low Risk Oriented to surroundings, Maintained a safe environment, Hourly rounding (assess needs \T\ fall precautionary measures) done. Abuse screen: Denies threats or abuse. Denies injuries from another. Nutritional screening: No deficits noted. Tuberculosis screening: No symptoms or risk factors identified. Assessment: 17:00 General: Appears in no apparent distress. comfortable, well groomed, Behavior is calm, ph cooperative, appropriate for age. Pain: Complains of pain in suprapubic area and back. Neuro: Neuro: Level of Consciousness is awake, alert, obeys commands, Oriented to person, place, time, situation. Cardiovascular: Capillary refill < 3 seconds in bilateral fingers Patient's skin is warm and dry. Respiratory: Airway is patent Respiratory effort is even, unlabored, Respiratory pattern is regular, symmetrical. GI: Reports lower abdominal pain, nausea. Derm: Skin is pink, warm \T\ dry. Musculoskeletal: Circulation, motion, and sensation intact. Range of motion: intact in all extremities. Vital Signs: 15:03 BP 146 / 81; Pulse 89; Resp 16; Temp 97.5(TE); Pulse Ox 100% ; db 17:36 BP 132 / 78; Pulse 87; Resp 18; Temp 97.9; Pulse Ox 98% on R/A; ph ED Course: 14:47 Patient arrived in ED. al6 14:55 Angélica Atkinson FNP-C [facility]. kb 14:55 Michael Stephens MD is Attending Physician. kb 15:05 Triage completed. db 15:06 Arm band placed on Patient placed in an exam room. db 15:37 CT Stone Protocol In Process Unspecified. EDMS 15:52 Test, Urine Sent. bc6 15:52 UA Rfx Jimenez Cult if indicated Sent. bc6 15:52 CBC with Diff Sent. bc6 15:52 CMP Sent. bc6 15:52 Lipase Sent. bc6 15:52 Initial lab(s) drawn, by me, sent to lab. Urine collected: clean catch specimen, clear. bc6 Inserted saline lock: 20 gauge in right antecubital area, using aseptic technique. Blood collected. Flushed with 10 mL NS. 16:06 Yessenia Keen, RN is Primary Nurse. ph 17:00 Patient has correct armband on for positive identification. Bed in low position. Call ph light in reach. Side rails up X 1. Pulse ox on. NIBP on. Door closed. Noise minimized. 17:38 No provider procedures requiring assistance completed. IV discontinued, intact, ph bleeding controlled, No redness/swelling at site. Pressure dressing applied. Administered Medications: 17:06 Drug: TORadol - Ketorolac IVP 15 mg IVP once Route: IVP; Site: right antecubital; ph 17:38 Follow up: Response: No adverse reaction ph 17:06 Drug: Ondansetron IVP 4 mg IVP once; over 2 minutes Route: IVP; Site: right antecubital;ph 17:37 Follow up: Response: No adverse reaction ph 17:06 Drug: NS 0.9% IV 1000 ml IV at 1 bolus Per protocol; to be given as a bolus over 60 ph minutes Route: IV; Rate: 1 bolus; Site: right antecubital; 17:37 Follow up: Response: No adverse reaction; IV Status: Completed infusion; IV Intake: ph 1000ml Medication: 17:36 VIS not applicable for this client. ph Intake: 17:37 IV: 1000ml; Total: 1000ml. ph Outcome: 17:30 Discharge ordered by . lopez 17:38 Discharged to home ambulatory, with family, ph 17:38 Condition: good 17:38 Discharge instructions given to patient, family, Instructed on discharge instructions, follow up and referral plans. medication usage, Demonstrated understanding of instructions, follow-up care, medications, Prescriptions given X 2, 17:38 Patient left the ED. ph Signatures: Dispatcher [employer] EDMS Angélica Atkinson, ISAI WATSON-Yessenia Vance, RN RN ph Claudia Neves, BARBARA RN Taylor Tovar6 Nya Arredondo Corrections: (The following items were deleted from the chart) 15:05 15:03 Chief complaint: Patient states: MIDDLE BACK PAIN STARTED TODAY WHEN WOKE UP. db DENIES RECENT INJURY. AMBULATORY IN TRIAGE. STATES BODY HURTS SOMETIMES db 15:06 15:03 Chief complaint: Patient states: MIDDLE BACK PAIN STARTED TODAY WHEN WOKE UP. db DENIES RECENT INJURY. AMBULATORY IN TRIAGE. STATES BODY HURTS SOMETIMES. STATES PAINFUL URINATION STARTED YESTERDAY db
--- NOTE | 2024-11-05 17:30 | EDPHYS ---
Physician Documentation [facility] Name: Torri Victoria Age: 48 yrs Sex: Female : 1975 Arrival Date: 11/05/2024 Time: 14:42 Bed 5 Private MD: ED Physician Michael Stephens HPI: 11/05 16:41 This 48 yrs old Female presents to ER via Ambulatory with complaints of Back kb Pain. 16:41 Pt is a 48 year old female who presents for left flank pain that started today with kb dysuria that started yesterday. Denies hematuria, fever, vomiting, diarrhea. States she has had some nausea. . Historical: - Allergies: 15:03 No Known Allergies; db - PMHx: 15:03 SPECIAL NEEDS; db - Immunization history:: Adult Immunizations unknown. - Infectious Disease History:: Denies. - Social history:: Smoking status: Patient denies any tobacco usage or history of. ROS: 16:41 Constitutional: As per HPI kb Exam: 16:41 Constitutional: This is a well developed, well nourished patient who is awake, alert, kb and in no acute distress. Head/Face: Normocephalic, atraumatic. ENT: Moist Mucous membranes Cardiovascular: Regular rate Respiratory: Respirations even and unlabored. No increased work of breathing. Talking in full sentences Skin: Warm, dry with normal turgor. Normal color. MS/ Extremity: Pulses equal, no cyanosis. Neurovascular intact. Full, normal range of motion. Neuro: Awake and alert, GCS 15, oriented to person, place, time, and situation. 16:41 Abdomen/GI: Inspection: abdomen appears normal, Bowel sounds: normal, Palpation: soft, in all quadrants, mild abdominal tenderness, in the suprapubic area, right lower quadrant and left lower quadrant, 16:41 Back: CVA tenderness, that is mild, is noted on the left, Vital Signs: 15:03 BP 146 / 81; Pulse 89; Resp 16; Temp 97.5(TE); Pulse Ox 100% ; db 17:36 BP 132 / 78; Pulse 87; Resp 18; Temp 97.9; Pulse Ox 98% on R/A; ph MDM: 14:55 Medical Screening Exam initiated kb 17:29 Data reviewed: vital signs, nurses notes. kb 17:29 Differential diagnosis: Ureterolithiasis UTI, pyelonephritis, strain. I considered the kb following discharge prescriptions or medication management in the emergency department Antibiotics: At this time antibiotics are not recommended. Historians other than the Patient: Family Member: family. Counseling: I had a detailed discussion with the patient and/or guardian regarding the historical points, exam findings, and any diagnostic results supporting the discharge/admit diagnosis, lab results, radiology results, the need for outpatient follow up, a family practitioner, to return to the emergency department if symptoms worsen or persist or if there are any questions or concerns that arise at home. 11/05 15:13 Order name: CBC with Diff; Complete Time: 16:02 kb 11/05 15:13 Order name: CMP; Complete Time: 16:17 kb 11/05 15:13 Order name: Lipase; Complete Time: 16:17 kb 11/05 15:13 Order name: UA Rfx Jimenez Cult if indicated; Complete Time: 16:02 kb 11/05 15:13 Order name: Test, Urine; Complete Time: 16:02 kb 11/05 15:13 Order name: CT Stone Protocol; Complete Time: 17:22 kb 11/05 15:13 Order name: IV Saline Lock; Complete Time: 15:52 kb 11/05 15:13 Order name: Labs collected and sent; Complete Time: 15:52 kb Administered Medications: 17:06 Drug: TORadol - Ketorolac IVP 15 mg IVP once Route: IVP; Site: right antecubital; ph 17:38 Follow up: Response: No adverse reaction ph 17:06 Drug: Ondansetron IVP 4 mg IVP once; over 2 minutes Route: IVP; Site: right antecubital;ph 17:37 Follow up: Response: No adverse reaction ph 17:06 Drug: NS 0.9% IV 1000 ml IV at 1 bolus Per protocol; to be given as a bolus over 60 ph minutes Route: IV; Rate: 1 bolus; Site: right antecubital; 17:37 Follow up: Response: No adverse reaction; IV Status: Completed infusion; IV Intake: ph 1000ml Disposition Summary: 11/05/24 17:30 Discharge Ordered Notes: Location: Home kb Condition: Stable kb Diagnosis - Low back pain kb Followup: kb - With: Emergency Department - When: As needed - Reason: Worsening of condition Followup: kb - With: Private Physician - When: 2 - 3 days - Reason: Recheck today's complaints, Continuance of care, Re-evaluation by your physician Discharge Instructions: - Discharge Summary Sheet kb - Musculoskeletal Pain kb Forms: - Medication Reconciliation Form kb - Antibiotic Education kb - Prescription Opioid Use kb - Patient Portal Instructions kb - Leadership Thank You Letter kb Prescriptions: - Diclofenac Sodium 75 mg Oral tablet, delayed release (enteric coated) - take 1 tablet ORAL route 2 times per day As needed; 30 tablet; Refills: 0, kb Product Selection Permitted - orphenadrine citrate 100 mg Oral Tablet Sustained Release - take 1 tablet ORAL route 2 times per day As needed; 20 tablet; Refills: 0, kb Product Selection Permitted Signatures: Dispatcher [employer] EDAngélica Bush FNP-John WATSON-Yessenia Vance, RN RN ph Claudia Neves RN RN db Corrections: (The following items were deleted from the chart) 15:13 15:13 CBC+H.LAB.BRZ ordered. EDMS EDMS 15:13 15:13 COMPREHENSIVE METABOLIC PANEL+C.LAB.BRZ ordered. EDMS EDMS 15:13 15:13 LIPASE+C.LAB.BRZ ordered. EDMS EDMS 15:13 15:13 UA Rfx Jimenez Cult if indicated+U.LAB.BRZ ordered. EDMS EDMS 15:13 15:13 Test, Urine+UC.LAB.BRZ ordered. EDMS EDMS
[2024-11-05 17:46] VITALS: BP 132/78; TEMP 97.9; O2SAT 98
== END 2024-11-05 17:38 | disposition home or self-care (01) ==
LOC: ER 14:42
DX: M54.50 Low back pain, unspecified (principal); R10.32 Left lower quadrant pain
CPT/HCPCS: 36415; 74176; 76377; 80053; 81003; 81025; 83690; 85025; 96361; 96374; 96375; 99284; J2405; J7030